=== PATIENT | male | born 1935 | race Caucasian/White ===

== ENCOUNTER 2017-06-12 17:05 | Emergency (ER) | payer OTHER, MEDICAID ==
[2017-06-12 17:25] VITALS: RESP 18
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
[2017-06-12 18:11] LABS: COLOR YELLOW; LEUKOCYTE ESTERASE,URINE 1+ (NEGATIVE); NITRITE,URINE NEGATIVE (NEGATIVE)
[2017-06-12 18:12] LABS: ANION GAP 12 mEq/L (8-16); CALCIUM 9.6 mg/dL (8.5-10.4); CARBON DIOXIDE 26 mEq/l (22-31); CHLORIDE 99 mEq/L (97-110); GLOMERULAR FILTRATION RATE > 60; GLUCOSE 113 mg/dL (70-100); SODIUM 137 mEq/L (134-144)
[2017-06-12 18:15] LABS: MUCUS TRACE /lpf (NONE-1+)
[2017-06-12] MEDS ORDERED: CEPHALEXIN 500 MG CAP PO ONE (18:37)
[2017-06-12 18:48] VITALS: TEMP 98.4
[2017-06-12 20:43] VITALS: BP 192/92; PULSE 63; O2SAT 94
== END 2017-06-12 20:43 | disposition home or self-care (01) ==
DX: F03.90 Unspecified dementia, unspecified severity, without behavioral disturbance, psychotic disturbance, mood disturbance, and anxiety (principal); N39.0 Urinary tract infection, site not specified; I10 Essential (primary) hypertension; Z85.46 Personal history of malignant neoplasm of prostate; Z87.891 Personal history of nicotine dependence

== ENCOUNTER 2017-06-13 12:30 | Emergency (ER) | payer OTHER, MEDICAID ==
[2017-06-13 12:48] VITALS: BP 141/86; PULSE 68; RESP 18; TEMP 99
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
[2017-06-13 15:16] VITALS: O2SAT 95
== END 2017-06-13 15:13 | disposition home or self-care (01) ==
LOC: EDUNIT#
DX: F03.90 Unspecified dementia, unspecified severity, without behavioral disturbance, psychotic disturbance, mood disturbance, and anxiety (principal); I10 Essential (primary) hypertension; Z85.46 Personal history of malignant neoplasm of prostate; Z95.0 Presence of cardiac pacemaker; Z87.891 Personal history of nicotine dependence

== ENCOUNTER 2017-06-24 14:14 | Emergency (ER) | payer OTHER, MEDICAID ==
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
[2017-06-24 14:27] VITALS: BP 136/91; PULSE 65; RESP 16; TEMP 98.1; O2SAT 92
== END 2017-06-24 14:24 | disposition home or self-care (01) ==
LOC: EDUNIT#
DX: S05.91XA Unspecified injury of right eye and orbit, initial encounter (principal); I10 Essential (primary) hypertension; Z95.0 Presence of cardiac pacemaker; Y08.89XA Assault by other specified means, initial encounter

== ENCOUNTER 2017-06-28 11:34 | Emergency (ER) | payer OTHER, MEDICAID ==
[2017-06-28] MEDS ORDERED: LIDOCAINE 2% JELLY 20 ML (UROJECT) ONE (11:41)
[2017-06-28 11:47] VITALS: RESP 16
--- NOTE | 2017-06-28 11:49 | EDPHY ---
H & P Stated Complaint: Unable to urinate this am - Personal History Current Tetanus/Diphtheria Vaccine: Unsure Current Tetanus Diphtheria and Acellular Pertussis (TDAP): Unsure - Medical/Surgical History Hx Asthma: No Hx Chronic Respiratory Disease: No Hx Diabetes: No Hx Cardiac Disease: Yes Hx Renal Disease: No Hx Cirrhosis: No Hx Alcoholism: No Hx HIV/AIDS: No Hx Splenectomy or Spleen Trauma: No Other PMH: prostate ca, HTN, Pacemaker, Dementia, urinary incontinence - Social History Smoking Status: Former smoker Time Seen by Provider: 06/28/17 11:43 HPI/ROS: CHIEF COMPLAINT: Hematuria, penile pain HISTORY OF PRESENT ILLNESS: 81-year-old male, no anticoagulant use, remote history of prostate cancer, history of chronic urinary dribbling, complaining of urinary retention, penile pain, blood from the urethral meatus. No abdominal , pelvic or genitalia trauma. No perineal pain. No back or flank pain. No rectal or buttock pain. REVIEW OF SYSTEMS: A ten point review of systems was performed and is negative with the exception of the items mentioned in the HPI PAST MEDICAL & SURGICAL HISTORY: Remote history of prostate cancer SOCIAL HISTORY:lives at a group home facility PHYSICAL EXAM (Prior to examination, patient consented to physical exam, hands were washed and my usual and customary physical exam procedures followed) 1) GENERAL: Well-developed, well-nourished, alert and oriented. Appears to be in no acute distress. 2) HEAD: Normocephalic, atraumatic 3) HEENT: Pupils equal, round, reactive to light bilaterally. Sclera anicteric. 4) NECK: Full range of motion, no meningeal signs. 5) LUNGS: Clear auscultation bilaterally, no wheezes, no rhonchi, no retractions. 6) HEART: Regular rate and rhythm, no murmur, no heave, no gallop. 7) ABDOMEN: No guarding, no rebound, no focal tenderness, negative McBurney's, 8) MUSCULOSKELETAL: Moving all extremities, no focal areas of tenderness, no obvious trauma. No peripheral edema or discoloration. 9) BACK: No CVA tenderness, no midline vertebral tenderness, no fluctuance, no step-off, no obvious trauma, no visual or palpable abnormality. 10) SKIN: No rash, no petechiae. 11) : Circumcised, no scrotal pain or discomfort, no perineal discomfort. 12) rectal: Normal rectal tone, no fluctuance, no tenderness. DIFFERENTIAL DIAGNOSIS: in no particular include but limited to prostatitis, cystitis, pyelonephritis, acute penile trauma, urinary retention (Nancy,Carrie Allyssa) Constitutional: Initial Vital Signs Temperature (C) 36.5 C 06/28/17 11:34 Heart Rate 79 06/28/17 11:34 Respiratory Rate 16 06/28/17 11:34 Blood Pressure 184/80 H 06/28/17 11:34 O2 Sat (%) 95 06/28/17 11:34 O2 Delivery Mode Room Air O2 (L/minute) 2 Allergies/Adverse Reactions: isosorbide Allergy (Verified 06/12/17 17:18) Home Medications: Medication Instructions Recorded Cephalexin [Keflex] 500 mg PO TID #21 cap 06/12/17 ACETAMINOPHEN 06/28/17 ASPIRIN 06/28/17 Atorvastatin Calcium 06/28/17 CALCIUM CARBONATE 06/28/17 Citalopram Hydrobromide 06/28/17 Miconazole 06/28/17 Nitroglycerin 06/28/17 levOFLOXACIN [levAQUIN (*)] 750 mg PO DAILY #7 tab 06/28/17 Other Provider: Independent physician documentation I evaluated and participated in the management of the patient. I also evaluated the patient independently. My co-signature indicates that I have reviewed this chart and I agree with the findings and plan of care as documented. My personal H&P findings include: The patient presents to the ED with complaints of urinary retention and penile pain. The patient does have a history of prostate cancer and has elected not to have prostate surgery performed. The patient did have a history of performing multiple self catheterizations in the past. The patient reports he does not utilize this practice anymore. The patient denies any fever, flank pain or vomiting. The patient states he has been unable to void throughout the day. Independent physical exam General Appearance: Alert, no distress Eyes: Pupils equal and round no pallor or injection ENT, Mouth: Mucous membranes moist Respiratory: There are no retractions, lungs are clear to auscultation Cardiovascular: Regular rate and rhythm Gastrointestinal: Suprapubic tenderness to palpation, no peritoneal signs Neurological: A&O, normal motor function, normal sensory exam, normal cranial nerves Skin: Warm and dry, no rashes Musculoskeletal: Neck is supple nontender Extremities: symmetrical, full range of motion Bladder scan demonstrates a undetectable bladder volume. I did perform a bedside ultrasound which appears to demonstrate a relatively decompressed bladder without evidence of acute urinary retention. The patient had an IV established. He received 2 L of normal saline. He had screening laboratory sent. The patient is noted to have a normal renal function in the emergency department. I repeated his bladder scan at 2:00 p.m.. His bladder volume is now 50 mL. The patient is having some blood from an attempted Farley catheter which was unsuccessful. The [facility] as he has no evidence of acute renal failure or acute urinary retention. The patient will be started on Levaquin for 7 days to cover any underlying cystitis or prostatitis. (García Andres) - Data Points Laboratory Results: Laboratory Results 06/28/17 12:50 06/28/17 12:50 06/28/17 06/28/17 06/28/17 14:25 12:50 12:50 WBC 10.87 10^3/uL H 10^3/uL (3.80-9.50) RBC 4.61 10^6/uL 10^6/uL (4.40-6.38) Hgb 14.0 g/dL g/dL (13.7-17.5) Hct 42.5 % % (40.0-51.0) MCV 92.2 fL fL (81.5-99.8) MCH 30.4 pg pg (27.9-34.1) MCHC 32.9 g/dL g/dL (32.4-36.7) RDW 13.4 % % (11.5-15.2) Plt Count 248 10^3/uL 10^3/uL (150-400) MPV 9.8 fL fL (8.7-11.7) Neut % (Auto) 75.2 % H % (39.3-74.2) Lymph % (Auto) 13.6 % L % (15.0-45.0) [place] % (Auto) 7.5 % % (4.5-13.0) Eos % (Auto) 2.4 % % (0.6-7.6) Baso % (Auto) 0.6 % % (0.3-1.7) Nucleat RBC Rel Count 0.0 % % (0.0-0.2) Absolute Neuts (auto) 8.18 10^3/uL H 10^3/uL (1.70-6.50) Absolute Lymphs (auto) 1.48 10^3/uL 10^3/uL (1.00-3.00) Absolute Monos (auto) 0.81 10^3/uL H 10^3/uL (0.30-0.80) Absolute Eos (auto) 0.26 10^3/uL 10^3/uL (0.03-0.40) Absolute Basos (auto) 0.06 10^3/uL 10^3/uL (0.02-0.10) Absolute Nucleated RBC 0.00 10^3/uL 10^3/uL (0-0.01) Immature Gran % 0.7 % % (0.0-1.1) Immature Gran # 0.08 10^3/uL 10^3/uL (0.00-0.10) Sodium 136 mEq/L mEq/L (134-144) Potassium 4.5 mEq/L mEq/L (3.5-5.2) Chloride 101 mEq/L mEq/L (97-110) Carbon Dioxide 23 mEq/l mEq/l (22-31) Anion Gap 12 mEq/L mEq/L (8-16) BUN 23 mg/dL mg/dL (7-23) Creatinine 1.1 mg/dL mg/dL (0.7-1.3) Estimated GFR > 60 Glucose 104 mg/dL H mg/dL (70-100) Calcium 10.0 mg/dL mg/dL (8.5-10.4) Urine Color STEPHANIE Urine Appearance MODERATELY TURBID Urine pH 6.0 (5.0-7.5) Ur Specific [place] 1.022 (1.002-1.030) Urine Protein 3+ H (NEGATIVE) Urine Ketones NEGATIVE (NEGATIVE) Urine Blood 3+ H (NEGATIVE) Urine Nitrate NEGATIVE (NEGATIVE) Urine Bilirubin NEGATIVE (NEGATIVE) Urine Urobilinogen NEGATIVE EU EU (0.2-1.0) Ur Leukocyte Esterase 1+ H (NEGATIVE) Urine RBC 50-182 /hpf H /hpf (0-3) Urine WBC 50-182 /hpf H /hpf (0-3) Ur Epithelial Cells 1+ /lpf /lpf (NONE-1+) Urine Glucose 1+ H (NEGATIVE) Medications Given: Discontinued Medications Sodium Chloride (Ns) 1,000 mls @ 0 mls/hr IV ONCE ONE PRN Reason: Wide Open Stop: 06/28/17 12:31 Last Admin: 06/28/17 12:51 Dose: 1,000 mls Levofloxacin (Levaquin) 750 mg PO EDNOW ONE PRN Reason: Protocol Stop: 06/28/17 14:20 Last Admin: 06/28/17 15:17 Dose: 750 mg Lidocaine (Uroject Lidocaine 2% Jelly) 20 ml UR EDNOW ONE Stop: 06/28/17 13:21 Last Admin: 06/28/17 15:17 Dose: 20 ml Morphine Sulfate (Morphine) 4 mg IVP EDNOW ONE Stop: 06/28/17 12:51 Last Admin: 06/28/17 12:54 Dose: 4 mg Departure - Departure Disposition: Home, Routine, Self-Care Clinical Impression: Penile pain Condition: Good Instructions: Foreskin Care (ED) Additional Instructions: Return to the ER if you develop new or worsening symptoms. Return if you develop fevers, abdominal pain, back or flank pain or any other symptoms that concern you. Drink plenty of fluids. Referrals: GARCÍA SANTAMARIA [Primary Care Provider] - 07/01/17 Prescriptions: levOFLOXACIN [levAQUIN (*)] 750 mg PO DAILY #7 tab
[2017-06-28] MEDS ORDERED: NS 1,000 ML IV ONE (12:30)
[2017-06-28 13:14] LABS: % IMMATURE GRANULYOCYTES 0.7 % (0.0-1.1); ABSOLUTE IMMATURE GRANULOCYTES 0.08 10^3/uL (0.00-0.10); ADD DIFF? NO; ADD MORPH? NO; ADD SCAN? NO; ATYPICAL LYMPHOCYTE FLAG 0 (0-99); FRAGMENT RBC FLAG 0 (0-99); HEMATOCRIT 42.5 % (40.0-51.0); LEFT SHIFT FLG 0 (0-99); LIPEMIA HEMOLYSIS FLAG 80 (0-99); MEAN CELL HEMOGLOBIN 30.4 pg (27.9-34.1); MEAN CELL HEMOGLOBIN CONCENTR. 32.9 g/dL (32.4-36.7); MEAN CELL VOLUME 92.2 fL (81.5-99.8); MEAN PLATELET VOLUME 9.8 fL (8.7-11.7); PLATELET CLUMPS FLAG 0 (0-99); PLATELET COUNT 248 10^3/uL (150-400); RED BLOOD CELL COUNT 4.61 10^6/uL (4.40-6.38); RED CELL DISTRIBUTION WIDTH 13.4 % (11.5-15.2)
[2017-06-28] MEDS ORDERED: LIDOCAINE 2% JELLY 20 ML (UROJECT) UR ONE (13:20)
[2017-06-28 13:31] LABS: ANION GAP 12 mEq/L (8-16); CARBON DIOXIDE 23 mEq/l (22-31); CHLORIDE 101 mEq/L (97-110); CREATININE 1.1 mg/dL (0.7-1.3); GLOMERULAR FILTRATION RATE > 60; GLUCOSE 104 mg/dL (70-100); POTASSIUM 4.5 mEq/L (3.5-5.2); SODIUM 136 mEq/L (134-144)
[2017-06-28 14:35] LABS: COLOR AMBER; LEUKOCYTE ESTERASE,URINE 1+ (NEGATIVE); NITRITE,URINE NEGATIVE (NEGATIVE)
[2017-06-28 14:42] LABS: RBC,URINE 50-182 /hpf (0-3); WBC,URINE 50-182 /hpf (0-3)
[2017-06-28 16:43] VITALS: BP 148/78; PULSE 81; TEMP 97.9; O2SAT 93
== END 2017-06-28 16:43 | disposition home or self-care (01) ==
LOC: EDUNIT#
DX: N48.89 Other specified disorders of penis (principal); I10 Essential (primary) hypertension; Z79.82 Long term (current) use of aspirin; Z85.46 Personal history of malignant neoplasm of prostate; Z87.891 Personal history of nicotine dependence; Z95.0 Presence of cardiac pacemaker
CPT/HCPCS: 96374

== ENCOUNTER 2017-09-07 02:05 | Emergency (ER) | payer OTHER, MEDICAID ==
--- NOTE | 2017-09-07 02:13 | EDPHY ---
H & P HPI/ROS: HPI CHIEF COMPLAINT: Dysuria HISTORY OF PRESENT ILLNESS: Patient very pleasant 81-year-old male he resides at [facility] he has Alzheimer's dementia, he presents emergency room stating that he has burning when he urinates. Unclear exactly how long this been going on but the patient reports a week. He denies being on any antibiotics. I do not see any antibiotics on his med list currently. Patient denies back pain or abdominal pain. Denies chest pain or shortness of breath. Denies fever. Patient does have a DNR with him. Past Medical History: Urinary incontinence, prostate cancer, hypertension, pacemaker, dementia Past Surgical History: Pacemaker Social History: Denies daily use of drugs alcohol tobacco products. Resides at [facility]. Family History: Noncontributory. ROS REVIEW OF SYSTEMS: A comprehensive 10 point review of systems is otherwise negative aside from elements mentioned in the history of present illness. Exam Constitutional elderly, nontoxic, triage nursing summary reviewed, vital signs reviewed, awake/alert. Eyes normal conjunctivae and sclera, EOMI, PERRLA. HENT normal inspection, atraumatic, moist mucus membranes, no epistaxis, neck supple/ no meningismus, no raccoon eyes. Respiratory clear to auscultation bilaterally, normal breath sounds, no respiratory distress, no wheezing. Cardiovascular rate normal, regular rhythm, no murmur, no edema, distal pulses normal. Gastrointestinal rather large abdomen, soft, non-tender, no rebound, no guarding, normal bowel sounds, no distension, no pulsatile mass. Genitourinary no CVA tenderness. Incontinent of urine in diaper. Musculoskeletal no midline vertebral tenderness, full range of motion, no calf swelling, no tenderness of extremities, no meningismus, good pulses, neurovascularly intact. Skin pink, warm, & dry, no rash, skin atraumatic. Neurologic awake, alert and oriented x 3, AAOx3, moves all 4 extremities equally, motor intact, sensory intact, CN II-XII intact, normal cerebellar, normal vision, normal speech. Psychiatric normal mood/affect. Heme/Lymph/Immune no lymphadenopathy. Differential Diagnosis: Includes but is not limited to in a particular order UTI, cystitis, pyelonephritis Medical Decision Making: Plan for this patient cath urinalysis given the patient is urinary incontinent. Evaluate for UTI. If he does have a UTI will placed on antibiotics. Re-evaluation: 0245: Patient's urinalysis indicates nitrite positive UTI. Patient was given 1st dose of Keflex here in emergency room. This was not in out cath specimen. Will also give him peridium. And [place] pain control here in the emergency room additionally we paced on Keflex and peridium at his facility. He does not appear septic. He does not have back pain or abdominal pain. He is not vomiting. He has no fever. This is most likely a cystitis. Urine culture pending. Keflex given. Return precautions given. He understands Source: Patient, EMS - Medical/Surgical History Hx Asthma: No Hx Chronic Respiratory Disease: No Hx Diabetes: No Hx Cardiac Disease: Yes Hx Renal Disease: No Hx Cirrhosis: No Hx Alcoholism: No Hx HIV/AIDS: No Hx Splenectomy or Spleen Trauma: No Other PMH: prostate ca, HTN, Pacemaker, Dementia, urinary incontinence - Social History Smoking Status: Former smoker Constitutional: Initial Vital Signs Temperature (C) 36.7 C 09/07/17 02:10 Heart Rate 67 09/07/17 02:10 Respiratory Rate 18 09/07/17 02:10 Blood Pressure 159/102 H 09/07/17 02:10 O2 Sat (%) 93 09/07/17 02:10 O2 Delivery Mode Room Air Allergies/Adverse Reactions: isosorbide Allergy (Verified 09/07/17 02:17) Home Medications: Medication Instructions Recorded Cephalexin [Keflex] 500 mg PO TID #21 cap 06/12/17 ACETAMINOPHEN 06/28/17 ASPIRIN 06/28/17 Atorvastatin Calcium 06/28/17 CALCIUM CARBONATE 06/28/17 Citalopram Hydrobromide 06/28/17 Miconazole 06/28/17 Nitroglycerin 06/28/17 Albuterol Hfa Anes Only [Proair 09/07/17 Hfa Icu (*)] Cephalexin [Keflex] 500 mg PO Q6H #28 cap 09/07/17 Phenazopyridine HCl [Pyridium] 200 mg PO TID #15 tab 09/07/17 Medical Decision Making - Data Points Laboratory Results: 09/07/17 02:20 Urine Color YELLOW Urine Appearance MODERATELY TURBID Urine pH 7.0 (5.0-7.5) Ur Specific [place] 1.016 (1.002-1.030) Urine Protein 2+ H (NEGATIVE) Urine Ketones NEGATIVE (NEGATIVE) Urine Blood 1+ H (NEGATIVE) Urine Nitrate POSITIVE H (NEGATIVE) Urine Bilirubin NEGATIVE (NEGATIVE) Urine Urobilinogen NEGATIVE EU EU (0.2-1.0) Ur Leukocyte Esterase 3+ H (NEGATIVE) Urine RBC 5-10 /hpf H /hpf (0-3) Urine WBC 50-182 /hpf H /hpf (0-3) Ur Epithelial Cells Not Reported Urine Mucus TRACE /lpf /lpf (NONE-1+) Urine Glucose NEGATIVE (NEGATIVE) Medications Given: Discontinued Medications Oxycodone/Acetaminophen (Percocet 5/325) 1 tab PO EDNOW ONE Stop: 09/07/17 02:21 Last Admin: 09/07/17 02:24 Dose: 1 tab Phenazopyridine HCl (Pyridium) 200 mg PO EDNOW ONE Stop: 09/07/17 02:21 Last Admin: 09/07/17 02:25 Dose: 200 mg Departure - Departure Disposition: Home, Routine, Self-Care Clinical Impression: Urinary tract infection Qualifiers: Urinary tract infection type: acute cystitis Hematuria presence: with hematuria Qualified Code(s): N30.01 - Acute cystitis with hematuria Condition: Good Instructions: Urinary Tract Infection in Men (ED), Dysuria (ED) Additional Instructions: 1. Drink lots of fluids stay well-hydrated. 2. Return emergency room if develops worsening symptoms includes abdominal pain fever vomiting. 3. Antibiotics as prescribed. Referrals: Patient,NotPresent [Unknown] - As per Instructions Prescriptions: Cephalexin [Keflex] 500 mg PO Q6H #28 cap Phenazopyridine HCl [Pyridium] 200 mg PO TID #15 tab
[2017-09-07] MEDS ORDERED: PHENAZOPYRIDINE HCL 200 MG TAB PO ONE (02:20)
[2017-09-07] MEDS ORDERED: OXYCODONE/APAP 5/325 TAB PO ONE (02:20)
[2017-09-07 02:27] LABS: COLOR YELLOW; LEUKOCYTE ESTERASE,URINE 3+ (NEGATIVE); NITRITE,URINE POSITIVE (NEGATIVE)
[2017-09-07 02:30] LABS: MUCUS TRACE /lpf (NONE-1+); WBC,URINE 50-182 /hpf (0-3)
[2017-09-07] MEDS ORDERED: CEPHALEXIN 500MG PREPACK#4 BTL TAKEHOME ONE (02:34)
[2017-09-07] MEDS ORDERED: CEPHALEXIN 500 MG CAP PO ONE (02:34)
[2017-09-07] MEDS ORDERED: CEFTRIAXONE IM 350 MG/ML SYRINGE IM ONE (03:00)
[2017-09-07 03:24] VITALS: BP 147/78; PULSE 69; RESP 20; TEMP 98.2; O2SAT 98
== END 2017-09-07 03:26 | disposition home or self-care (01) ==
LOC: EDUNIT#
DX: N30.01 Acute cystitis with hematuria (principal); B96.4 Proteus (mirabilis) (morganii) as the cause of diseases classified elsewhere; I10 Essential (primary) hypertension; Z79.82 Long term (current) use of aspirin; Z85.46 Personal history of malignant neoplasm of prostate; Z87.891 Personal history of nicotine dependence; Z95.0 Presence of cardiac pacemaker
CPT/HCPCS: 96372; 99284; J0696

== ENCOUNTER 2017-10-09 09:53 | Emergency (ER) | payer OTHER, MEDICAID ==
[2017-10-09 10:12] VITALS: BP 171/94; PULSE 80
--- NOTE | 2017-10-09 10:21 | EDPHY ---
H & P Time Seen by Provider: 10/09/17 10:08 HPI/ROS: CHIEF COMPLAINT: Aggressive behavior HISTORY OF PRESENT ILLNESS: Patient is a history of prior urinary tract infections. He was aggressive today and staff is suspicious for urinary tract infection. He is combative with me and although in only intermittently cooperative is generally unwilling to answer questions about his medical history although he denies any medical complaints. REVIEW OF SYSTEMS: Cardiac: no chest pain or syncope Pulmonary: no cough or SOB Abdomen: no vomiting, diarrhea, abdominal pain Musculoskeletal: no back pain Skin: no rash Neuro: no headache Constitutional: no fever : no urinary symptoms A comprehensive 10 point review of systems is otherwise negative aside from elements mentioned in the history of present illness. PAST MEDICAL HISTORY: Previous visits stating 09/07 and 06/28/2017 the, both had Proteus UTI with sensitivity to Keflex Social history: [facility] resident General Appearance: Alert and conversant, intermittently cooperative. Eyes: No scleral icterus. ENT, Mouth: Normal mucous membranes. Respiratory: Normal respiratory effort, breath sounds equal, lungs are clear to auscultation. Cardiovascular: Regular rate and rhythm. Gastrointestinal: Abdomen is soft and non tender. Neurological: Patient is alert but intermittently belligerent. He does intermittently answer questions appropriately. Face symmetric, normal movement and sensation in all extremities. Skin: Warm and dry, no rashes. Musculoskeletal: No CVA tenderness. Psychiatric: Patient is combative, demanding his slicing machine feeder, saying "do not fucking touch me "and then relenting and being cooperative with the exam Emergency Department course/MDM: Urinalysis evaluated, will treat with Keflex for UTI. Patient in the ER does not appear to be a danger to others and hold is vacated by myself. Treated with oral Keflex for UTI. Does not appear to have sepsis or pyelonephritis. Smoking Status: Former smoker Constitutional: Initial Vital Signs Temperature (C) 36.8 C 10/09/17 09:53 Heart Rate 80 10/09/17 09:53 Respiratory Rate 20 10/09/17 09:53 Blood Pressure 171/94 H 10/09/17 09:53 O2 Sat (%) 94 10/09/17 09:53 O2 Delivery Mode Room Air Allergies/Adverse Reactions: isosorbide Allergy (Verified 09/07/17 02:17) Home Medications: Medication Instructions Recorded Cephalexin [Keflex] 500 mg PO TID #21 cap 06/12/17 ACETAMINOPHEN 06/28/17 ASPIRIN 06/28/17 Atorvastatin Calcium 06/28/17 CALCIUM CARBONATE 06/28/17 Citalopram Hydrobromide 06/28/17 Miconazole 06/28/17 Nitroglycerin 06/28/17 Albuterol Hfa Anes Only [Proair 09/07/17 Hfa Icu (*)] Cephalexin [Keflex] 500 mg PO Q6H #28 cap 09/07/17 Phenazopyridine HCl [Pyridium] 200 mg PO TID #15 tab 09/07/17 Cephalexin [Keflex] 500 mg PO QID #28 cap 10/09/17 Medical Decision Making Differential Diagnosis: Differential for aggressive behavior considered including but not limited to metabolic, UTI, dementia, primary psychiatric - Data Points Laboratory Results: 10/09/17 10:30 Urine Color YELLOW Urine Appearance MODERATELY TURBID Urine pH 5.0 (5.0-7.5) Ur Specific [place] 1.019 (1.002-1.030) Urine Protein 1+ H (NEGATIVE) Urine Ketones NEGATIVE (NEGATIVE) Urine Blood 1+ H (NEGATIVE) Urine Nitrate NEGATIVE (NEGATIVE) Urine Bilirubin NEGATIVE (NEGATIVE) Urine Urobilinogen NEGATIVE EU EU (0.2-1.0) Ur Leukocyte Esterase 3+ H (NEGATIVE) Urine RBC 50-182 /hpf H /hpf (0-3) Urine WBC 50-182 /hpf H /hpf (0-3) Ur Epithelial Cells 1+ /lpf /lpf (NONE-1+) Urine Bacteria 1+ /hpf H /hpf (NONE SEEN) Urine Mucus 2+ /lpf H /lpf (NONE-1+) Urine Glucose NEGATIVE (NEGATIVE) Medications Given: Discontinued Medications Cephalexin HCl (Keflex) 500 mg PO EDNOW ONE PRN Reason: Protocol Stop: 10/09/17 11:31 Last Admin: 10/09/17 12:38 Dose: 500 mg Departure - Departure Disposition: Home, Routine, Self-Care Clinical Impression: Urinary tract infection Qualifiers: Urinary tract infection type: acute cystitis Hematuria presence: with hematuria Qualified Code(s): N30.01 - Acute cystitis with hematuria Condition: Good Instructions: Urinary Tract Infection in Men (ED) Referrals: EDITA SANTAMARIA [Primary Care Provider] - As per Instructions Prescriptions: Cephalexin [Keflex] 500 mg PO QID #28 cap
[2017-10-09 10:49] LABS: COLOR YELLOW; LEUKOCYTE ESTERASE,URINE 3+ (NEGATIVE); NITRITE,URINE NEGATIVE (NEGATIVE)
[2017-10-09 10:52] LABS: BACTERIA 1+ /hpf (NONE SEEN); MUCUS 2+ /lpf (NONE-1+); RBC,URINE 50-182 /hpf (0-3); WBC,URINE 50-182 /hpf (0-3)
[2017-10-09] MEDS ORDERED: CEPHALEXIN 500 MG CAP PO ONE (11:30)
[2017-10-09 13:19] VITALS: RESP 16; TEMP 97.9; O2SAT 91
--- NOTE | 2017-10-09 13:45 | ASMTCMCOM ---
CM Note CM Note Notes: Patient resides at [facility] in their locked memory care unit and visits the ER frequently. I have called and discussed situation with Dina at , and coordinated transportation with [facility] for patient's return. Patient verbalizes understanding that he will return to and is calm and cooperative when I spoke with him. Report called to per AIME Rodrigues Date Signed: 10/09/2017 01:45 PM Electronically Signed By:Lilly Thomas RN
== END 2017-10-09 13:19 | disposition home or self-care (01) ==
LOC: EDUNIT#
DX: N30.01 Acute cystitis with hematuria (principal); B96.89 Other specified bacterial agents as the cause of diseases classified elsewhere; Z79.82 Long term (current) use of aspirin; Z87.891 Personal history of nicotine dependence